=== PATIENT | female | born 1975 | race Caucasian/White ===

== ENCOUNTER 2023-06-14 17:38 | Emergency (ER) | payer BC ==
[~2023-06-14] VITALS: Ht 157.5 cm; Wt 83.4 kg
--- NOTE | 2023-06-14 18:44 | NUR ---
Patient now complains of UTI symptoms. Labs ordered.
--- NOTE | 2023-06-14 18:44 | NUR ---
Patient placed in room 14.
[2023-06-14 18:48] LABS: URINE HCG NEGATIVE (NEG)
[2023-06-14 18:57] LABS: BILIRUBIN,URINE SMALL (Neg); CLARITY,URINE CLOUDY (Clear); GLUCOSE, URINE NEGATIVE (Neg); KETONES,URINE 40 mg/dl (Neg); LEUKOCYTE ESTERASE ,URINE NEGATIVE (Neg); NITRITES, URINE NEGATIVE (Neg); OCCULT BLOOD,URINE NEGATIVE (Neg); PROTEIN,URINE TRACE mg/dl (Neg); UROBILINOGEN,URINE 0.2 E.U/dL (0.2-1.0)
[2023-06-14 19:06] LABS: COLOR,URINE DARK YELLOW (Yellow); UA COLLECTION TYPE CLN CATCH MIDSTREAM
[2023-06-14 19:09] LABS: URINE AMPHETAMINE SCREEN NEGATIVE (Neg); URINE BARBITUATE SCREEN NEGATIVE (Neg); URINE BENZODIAZEPINES SCREEN NEGATIVE (Neg); URINE CANNABINOID SCREEN POSITIVE (Neg); URINE COCAINE SCREEN NEGATIVE (Neg); URINE METHADONE SCREEN NEGATIVE (Neg); URINE OPIATE SCREEN NEGATIVE (Neg); URINE PHENCYCLIDINE SCREEN NEGATIVE (Neg)
[2023-06-14 19:23] LABS: BACTERIA,URINE NONE SEEN /HPF (Neg); MUCUS STRANDS MANY /LPF (Neg); RBC,URINE 0-2 /HPF (0-2); SQUAMOUS EPITHELIAL CELL,UR FEW /LPF (FEW); WBC,URINE 0-4 /HPF (0-4)
[2023-06-14 19:46] LABS: BASOPHILS % (AUTO) 0.2 % (0-1); EOSINOPHILS % (AUTO) 0.1 % (0-6); HEMATOCRIT 46.7 % (35.0-45.0); LYMPHOCYTES # (AUTO) 1.6 X10'3 (1.1-4.8); LYMPHOCYTES % (AUTO) 11.9 % (21-51); MEAN CORPUSCULAR HGB CONC 34.3 g/dL (33.0-36.5); MEAN CORPUSCULAR VOLUME 90.3 FL (78-98); MEAN PLATELET VOLUME 7.1 FL (7.4-10.4); MONOCYTES # (AUTO) 0.6 X10'3 (0-0.9); MONOCYTES % (AUTO) 4.9 % (2-12); NEUTROPHILS # (AUTO) 10.8 X10'3 (1.8-7.7); NEUTROPHILS % (AUTO) 82.9 % (42-75); PLATELET COUNT 510 X10'3 (140-440); RED BLOOD COUNT 5.17 X10'6 (4.20-5.60); RED CELL DISTRIBUTION WIDTH 13.6 % (11.5-14.5)
[2023-06-14 20:13] LABS: ALANINE AMINOTRANSFERASE 26 U/L (12-78); ALBUMIN 4.1 G/DL (3.4-5.0); ALKALINE PHOSPHATASE 93 IU/L (46-116); ANION GAP 14 (8-16); ASPARTATE AMINO TRANSFERASE 20 U/L (10-37); BILIRUBIN,TOTAL 0.4 MG/DL (0.1-1.0); BLOOD UREA NITROGEN 22 MG/DL (7-18); BUN/CREATININE RATIO 24.7 (10.0-20.0); CALCIUM 9.9 MG/DL (8.5-10.1); CHLORIDE 103 MMOL/L (99-107); CREATININE 0.89 MG/DL (0.40-0.90); GLUCOSE 100 MG/DL (70-104); POTASSIUM 3.8 MMOL/L (3.5-5.1); SODIUM 141 MMOL/L (135-145); TOTAL CARBON DIOXIDE 23.6 MMOL/L (24-32); TOTAL PROTEIN 8.4 G/DL (6.4-8.2); eCRCL 62 ML/MIN; eGFR 68 ML/MIN
[2023-06-14 20:26] LABS: LIPASE < 50 U/L (73-393)
[2023-06-14 20:29] LABS: ETHANOL < 10 MG/DL (<10)
[2023-06-14] MEDS ORDERED: VALA100031 PO (20:52)
[2023-06-14] MEDS ORDERED: TOPI25TA15 PO (20:52)
[2023-06-14] MEDS ORDERED: PANT-47 PO (20:52)
[2023-06-14] MEDS ORDERED: LEVO50TA PO (20:52)
[2023-06-14] MEDS ORDERED: VENLAFAXINE PO (20:52)
[2023-06-14] MEDS ORDERED: FURO-150 PO (20:52)
[2023-06-14] MEDS ORDERED: BUPR75TA8 PO (20:52)
[2023-06-14] MEDS ORDERED: LISI20TA28 PO (20:52)
[2023-06-14] MEDS ORDERED: LURA40TA2 PO (20:52)
[2023-06-14] MEDS ORDERED: GABA-530 PO (20:53)
[2023-06-14] MEDS ORDERED: HYDR-3686 PO (20:53)
[2023-06-14] MEDS ORDERED: LORA10TA7 PO (20:53)
[2023-06-14] MEDS ORDERED: VITA400T10 PO (20:53)
[2023-06-14] MEDS ORDERED: RAME8TAB15 PO (20:55)
[2023-06-14] MEDS ORDERED: furosemide 20MG tablet PO SCH (22:18)
[2023-06-14] MEDS ORDERED: gabapentin 100mg capsule PO SCH (22:18)
[2023-06-14] MEDS ORDERED: vitamin E 400 unit capsule PO SCH (22:21)
[2023-06-14] MEDS ORDERED: zolpidem 5mg tablet PO SCH (22:22)
[2023-06-14] MEDS: buPROPion 75mg tablet PO SCH (22:56)
[2023-06-14] MEDS: hydrOXYzine 25 MG tablet PO SCH (22:56)
--- NOTE | 2023-06-15 03:38 | NUR ---
pt has continued to sleep all night.
--- NOTE | 2023-06-15 06:58 | NUR ---
Patient ambulated to bed 23. Belongings were not taken away last night and patient is resistent to giving up her phone. Had to explain that if she didn't give up her phone that security would take it from her. Patient did give phone to RN. 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 Patient laying down in bed, resting.
[2023-06-15] MEDS ORDERED: levoTHYROXINE 25mcg tablet PO SCH (07:00)
[2023-06-15] MEDS ORDERED: pantoprazole 40mg Tablet.DR PO SCH (07:30)
[2023-06-15] MEDS: buPROPion 75mg tablet PO SCH (07:43)
[2023-06-15] MEDS: hydrOXYzine 25 MG tablet PO SCH (07:45)
[2023-06-15] MEDS ORDERED: lisinopril 10 MG tablet PO SCH (08:00)
[2023-06-15] MEDS ORDERED: loratadine 10mg tablet PO SCH (08:00)
[2023-06-15] MEDS ORDERED: topiramate 25mg tablet PO SCH (08:00)
[2023-06-15] MEDS ORDERED: furosemide 20MG tablet PO SCH (08:00)
[2023-06-15] MEDS ORDERED: valacyclovir 500mg tablet PO SCH (08:00)
[2023-06-15] MEDS ORDERED: venlafaxine XR 75mg capsule (Q24H) PO SCH (08:00)
[2023-06-15] MEDS ORDERED: vitamin E 400 unit capsule PO SCH ×2 (08:00→21:00)
--- NOTE | 2023-06-15 09:03 | NUR ---
yeyo sent pt packet to [facility]
--- NOTE | 2023-06-15 09:10 | NUR ---
cell phone, keys and phone sent to the safe. Patient sleeping at this time. No needs identified. Will continue to monitor.
--- NOTE | 2023-06-15 10:01 | NUR ---
Patient continues sleeping prone in bed. Respirations are even and nonlabored.
--- NOTE | 2023-06-15 11:04 | NUR ---
[facility] here to evaluate patient.
--- NOTE | 2023-06-15 11:50 | NUR ---
Telephone call to [facility] cab, wait time is 1.5 hours. They will call when on their way.
--- NOTE | 2023-06-15 13:20 | NUR ---
[facility] is here to take patient home. Patient was escorted out by RN. Patient is in stable condition.
[2023-06-15 13:22] VITALS: BP 112/72; PULSE 73; RESP 16; TEMP 97.6; O2SAT 98
[2023-06-15] MEDS ORDERED: RAMELTEON 8 MG PO SCH (21:00)
[2023-06-18 15:30] LABS: CHLAMYDIA TRACHOMATIS, NAA Negative (Negative)
== END 2023-06-15 13:26 | disposition home or self-care (01) ==
LOC: ER 17:40
DX: R45.851 Suicidal ideations (principal); Z20.822 Contact with and (suspected) exposure to COVID-19; F41.9 Anxiety disorder, unspecified; F32.9 Major depressive disorder, single episode, unspecified; Z79.899 Other long term (current) drug therapy; Z79.2 Long term (current) use of antibiotics
CPT/HCPCS: 36415; 80053; 80305; 80320; 81001; 81025; 83690; 84443; 85025; 87491; 87591; 87811; 99285; Q0177